=== PATIENT | female | born 1995 | race Caucasian/White ===

== ENCOUNTER 2023-10-20 03:17 | Emergency (ER) | payer MEDICAID ==
[2023-10-20] MEDS: SODIUM CHLORIDE 0.9% 1,000 ML IV ONE (03:54)
[2023-10-20] MEDS: ACETAMINOPHEN 1000MG/100ML 100 ML IV ONE (03:59)
[2023-10-20] MEDS: ONDANSETRON HCL 4MG/2ML INJ IV ONE (03:59)
[2023-10-20 04:02] LABS: BASOPHILS % 0.3 % (0.0-2.0); EOSINOPHILS % 1.1 % (0.0-5.0); HEMATOCRIT. 33.7 % (36.0-48.0); HEMOGLOBIN. 11.5 g/dL (12.0-16.0); LYMPHOCYTES % 33.1 % (20.0-50.0); MEAN CORPUSCULAR HEMOGLOBIN 29.4 pg (28.0-32.0); MEAN CORPUSCULAR VOLUME 86.5 fL (81.0-99.0); MEAN PLATELET VOLUME 7.1 fl (7.4-10.4); MONOCYTES % 6.1 % (2.0-8.0); NEUTROPHILS % 59.4 % (40.0-76.0); PLATELET 302 x1000/uL (130-400); RED BLOOD CELL COUNT 3.89 mill/uL (4.2-5.4); RED CELL DISTRIBUTION WIDTH 13.5 % (11.6-14.6); WHITE BLOOD COUNT 7.9 x1000/uL (4.5-11.0)
[2023-10-20 04:12] LABS: CHLORIDE 105 mEq/L (98-107); POTASSIUM 3.4 mEq/L (3.5-5.1); SODIUM 136 mEq/L (136-145)
[2023-10-20 04:13] LABS: CARBON DIOXIDE 21 mEq/L (21-32)
[2023-10-20 04:18] LABS: CREATININE 0.5 mg/dL (0.6-1.0); GLUCOSE 99 mg/dL (70-105); UREA NITROGEN BLOOD 8 mg/dL (9-23)
[2023-10-20 04:31] LABS: B-HCG QUANTITATIVE 4915 mIU/mL (<3)
[2023-10-20 05:35] LABS: CLARITY URINE CLEAR (CLEAR); COLOR URINE YELLOW (YELLOW); GLUCOSE URINE NEGATIVE (NEGATIVE); KETONES URINE NEGATIVE (NEGATIVE); LEUKOCYTE ESTERASE URINE 2+ (NEGATIVE); NITRITE URINE NEGATIVE (NEGATIVE); OCCULT BLOOD URINE NEGATIVE (NEGATIVE); PROTEIN URINE NEGATIVE (NEGATIVE); SPECIFIC GRAVITY URINE 1.007 (1.005-1.030); UROBILINOGEN URINE 0.2 E.U./dL (0.2-1.0)
[2023-10-20 06:13] VITALS: BP 101/65; PULSE 79; RESP 18; TEMP 98.1
[2023-10-20 07:18] LABS: SQUAMOUS EPITHELIAL CELL URINE 2+ /lpf (RARE/1+)
[2023-10-20 07:23] LABS: RBC URINE 0-2 /hpf (0-2)
[2023-10-20 07:24] LABS: BACTERIA URINE NONE SEEN
== END 2023-10-20 06:33 | disposition short-term general hospital (02) ==
LOC: ER 03:17
DX: O26.893 Other specified pregnancy related conditions, third trimester (principal); R10.9 Unspecified abdominal pain; Z3A.31 31 weeks gestation of pregnancy
CPT/HCPCS: 80048; 81003; 84702; 85025; 86850; 86900; 86901; 36415; 76818; 76805; 96365; 96375; 99285; J2405; J7030; Z7610; J0131

== ENCOUNTER 2024-01-16 22:33 | Emergency (ER) | payer MEDICAID ==
[~2024-01-16] VITALS: Ht 152.4 cm; Wt 71.2 kg
[2024-01-16 23:03] VITALS: O2SAT 99
[2024-01-16] MEDS: HYDROCODONE/ACETAMINOPHEN 5/325MG TABLET PO ONE (23:30)
[2024-01-16] MEDS: ONDANSETRON 4MG ODT PO ONE (23:30)
[2024-01-16 23:49] LABS: BASOPHILS % 0.2 % (0.0-2.0); EOSINOPHILS % 1.9 % (0.0-5.0); HEMATOCRIT. 37.6 % (36.0-48.0); HEMOGLOBIN. 12.3 g/dL (12.0-16.0); LYMPHOCYTES % 18.4 % (20.0-50.0); MEAN CORPUSCULAR HEMOGLOBIN 28.5 pg (28.0-32.0); MEAN CORPUSCULAR HGB CONC 32.6 g/dL (31.0-37.0); MEAN CORPUSCULAR VOLUME 87.3 fL (81.0-99.0); MEAN PLATELET VOLUME 6.9 fl (7.4-10.4); MONOCYTES % 4.4 % (2.0-8.0); NEUTROPHILS % 75.1 % (40.0-76.0); PLATELET 386 x1000/uL (130-400); RED BLOOD CELL COUNT 4.31 mill/uL (4.2-5.4); RED CELL DISTRIBUTION WIDTH 14.5 % (11.6-14.6); WHITE BLOOD COUNT 12.3 x1000/uL (4.5-11.0)
[2024-01-16 23:56] LABS: CARBON DIOXIDE 25 mEq/L (21-32); CHLORIDE 108 mEq/L (98-107); POTASSIUM 3.8 mEq/L (3.5-5.1); SODIUM 140 mEq/L (136-145)
[2024-01-16 23:57] LABS: CALCIUM 9.3 mg/dL (8.7-10.4)
[2024-01-17 00:01] LABS: CREATININE 0.7 mg/dL (0.6-1.0)
[2024-01-17 00:02] LABS: GLUCOSE 131 mg/dL (70-105); UREA NITROGEN BLOOD 8 mg/dL (9-23)
[2024-01-17 00:03] LABS: ALANINE AMINOTRANSFERASE 98 IU/L (10-49); ALBUMIN 4.4 g/dL (3.2-4.8); ASPARTATE AMINOTRANSFERASE 125 IU/L (<34)
[2024-01-17 00:04] LABS: BILIRUBIN DIRECT 0.2 mg/dL (<=3.0); BILIRUBIN TOTAL 0.5 mg/dL (0.1-1.0); PROTEIN TOTAL 7.3 g/dL (6.0-8.3)
[2024-01-17 03:19] LABS: CLARITY URINE TURBID (CLEAR); COLOR URINE RED (YELLOW); GLUCOSE URINE NEGATIVE (NEGATIVE); KETONES URINE NEGATIVE (NEGATIVE); LEUKOCYTE ESTERASE URINE 3+ (NEGATIVE); NITRITE URINE POSITIVE (NEGATIVE); OCCULT BLOOD URINE 3+ (NEGATIVE); PH URINE 5.5 (4.5-8.0); PROTEIN URINE 2+ (NEGATIVE); SPECIFIC GRAVITY URINE 1.034 (1.005-1.030)
[2024-01-17] MEDS: ONDANSETRON HCL 4MG/2ML INJ IV STA (04:30)
[2024-01-17] MEDS: SODIUM CHLORIDE 0.9% 1,000 ML IV ONE (04:30)
[2024-01-17] MEDS: CEFTRIAXONE 1GM/50ML 50 ML IV ONE (04:30)
[2024-01-17] MEDS: SODIUM CHLORIDE 0.45% 1,000 ML IV ONE (05:00)
[2024-01-17] MEDS ORDERED: DOCUSATE SODIUM 100MG CAPSULE PO PRN (05:30)
[2024-01-17] MEDS ORDERED: GUAIFENESIN 200MG/10ML SUGAR FREE UDC PO PRN (05:30)
[2024-01-17] MEDS ORDERED: CLONIDINE 0.1MG TABLET PO PRN (05:30)
[2024-01-17] MEDS: KETOROLAC 15MG/ML VIAL IV NR (05:30)
[2024-01-17] MEDS ORDERED: LORAZEPAM 0.5MG TABLET PO PRN (05:30)
[2024-01-17] MEDS ORDERED: IPRATROPIUM/ALBUTEROL 0.5-3(2.5)MG/3ML NEB HHN PRN (05:30)
[2024-01-17] MEDS ORDERED: ONDANSETRON HCL 4MG/2ML INJ IV PRN (05:30)
[2024-01-17] MEDS ORDERED: ACETAMINOPHEN 325MG TABLET PO PRN ×2 (05:30)
[2024-01-17 06:05] LABS: SQUAMOUS EPITHELIAL CELL URINE FEW /lpf (RARE/1+)
[2024-01-17] MEDS: MORPHINE SULFATE 4 MG/ML INJ (FOR IV/IM USE) IV STA (06:10)
[2024-01-17 06:11] LABS: RBC URINE TNTC /hpf (0-2); WBC URINE 15-25 /hpf (0-2)
[2024-01-17 06:12] LABS: BACTERIA URINE TRACE
[2024-01-17 06:18] LABS: T4 FREE 1.21 ng/dL (0.89-1.76); THYROID STIMULATING HORMONE 1.39 uIU/mL (0.55-4.78)
[2024-01-17] MEDS: CEFTRIAXONE 2GM/50ML 50 ML IV SCH (07:56)
[2024-01-17] MEDS: PANTOPRAZOLE 40MG DR TABLET PO SCH (07:58)
[2024-01-17 10:02] VITALS: BP 111/66; PULSE 57; RESP 17; TEMP 37.11408; O2SAT 100
== END 2024-01-17 10:12 | disposition left against medical advice (07) ==
LOC: ER 22:33 → EDBEDREQ 01-17 04:14 → ER 01-17 10:12 → CANBEDREQ 01-17 10:13
DX: K80.20 Calculus of gallbladder without cholecystitis without obstruction (principal)
CPT/HCPCS: 80076; 80048; 81025; 83690; 85025; 36415 ×2; 76705; 99285; 80061; 81003; 84439; 83605; 84443; 87040; 87086; 84145; 96365; 96366; 96375; J0696 ×2; J2270; J7030; Z7610